=== PATIENT | male | born 1945 | race Caucasian/White ===

== ENCOUNTER 2019-10-26 07:50 | Emergency (ER) | payer MEDICARE, OTHER ==
[2019-10-26 08:21] VITALS: BP 158/67; PULSE 88
--- NOTE | 2019-10-26 08:54 | EDM.PDOC ---
ED HPI GENERAL MEDICAL PROBLEM - General Chief Complaint: Lower Extremity Injury/Pain Stated Complaint: FALL (HIP PAIN) Time Seen by Provider: 10/26/19 08:40 Source of Information: Reports: Patient, Family (son) History Limitations: Reports: No Limitations - History of Present Illness INITIAL COMMENTS - FREE TEXT/NARRATIVE: 74-year-old male presents to the ED for evaluation of left hip buttock pain. Patient was standing on the hitch of a back of 1/2 ton last evening and fell landing hard on his left hip. It required 2 of his sons to help pick him up and he could partially weight-bear on the left hip. Pain is much worse this morning and did plague him all night long. He can still weight-bear with a significant limp and a little help by his son. Of note the patient is on Plavix due to multiple stents in his heart and previous bilateral carotid endarterectomy. And scraped up his left forearm denies any injuries to his head neck chest wall or back. Injury occurred about 1930 hrs. last evening. He believes his tetanus toxoid is up-to-date. Onset: Sudden Onset Date: 10/25/19 Onset Time: 19:30 Duration: Hour(s): (All occurred about 1930 hrs. last night.), Getting Worse Location: Reports: Lower Extremity, Left (Pain in left hip and buttock area. Very painful to sit.) Quality: Reports: Ache Severity: Moderate (7 out of 10) Improves with: Reports: Rest Worsens with: Reports: Other (Worse with attempts to weight-bear and to sit.) Associated Symptoms: Denies: Confusion, Chest Pain, Cough, cough w sputum, Di aphoresis, Fever/Chills, Headaches, Loss of Appetite, Malaise, Nausea/Vomiting, Seizure, Shortness of Breath, Syncope, Weakness Treatments HAND TUBE BENDER: Reports: Other (see below) (Only his regular medications.) Left Hip Pain Score (Numeric/FACES): 8 - Related Data Allergies Allergy/AdvReac Type Severity Reaction Status Date / Time beeswax Allergy Severe Airway Verified 10/26/19 08:21 Tightness beet Allergy Severe Cannot Verified 10/26/19 08:21 Remember Home Meds: Home Meds Advair. 03/03/16 [History] Allopurinol [Zyloprim] 100 mg PO DAILY 03/03/16 [History] Aspirin [Halfprin] 81 mg PO BRK 03/03/16 [History] Flaxseed Oil. 1,200 mg PO BID 03/03/16 [History] Insulin Aspart [NovoLOG] 8 unit SUBCUT TIDAC 03/03/16 [History] Insulin Glarg,Human.Rec.Analog [LantUS Solostar] 22 unit SUBCUT BEDTIME 03/03/16 [History] Metoprolol Tartrate [Lopressor] 25 mg PO BID 03/03/16 [History] Omeprazole 20 mg PO DAILY 03/03/16 [History] Vitamin D3. 03/03/16 [History] amLODIPine [Norvasc] 5 mg PO DAILY 03/03/16 [History] atorvaSTATin [Lipitor] 10 mg PO BEDTIME 03/03/16 [History] levETIRAcetam [Keppra] 1,250 mg PO BID 03/03/16 [History] metFORMIN [Glucophage] 850 mg PO TIDMEALS 03/03/16 [History] Clopidogrel Bisulfate [Plavix] 75 mg PO DAILY 10/26/19 [History] oxyCODONE HCl/Acetaminophen [Percocet 5-325 mg Tablet] 1 - 2 each PO Q4H PRN #15 tablet 10/26/19 [Rx] Past Medical History HEENT History: Reports: Cataract Cardiovascular History: Reports: CAD, Heart Failure, High Cholesterol, Hypertension Genitourinary History: Reports: BPH Neurological History: Reports: CVA, Headaches, Chronic, Head Trauma, Seizure, Other (See Below) (Has had bilateral carotid endarterectomies.) Endocrine/Metabolic History: Reports: Diabetes, Type II - Past Surgical History Cardiovascular Surgical History: Reports: Coronary Artery Bypass GI Surgical History: Reports: Appendectomy Musculoskeletal Surgical History: Reports: Shoulder Surgery Social & Family History - Tobacco Use Smoking Status *Q: Never Smoker - Caffeine Use Caffeine Use: Reports: None, Coffee - Recreational Drug Use Recreational Drug Use: No - Living Situation & Occupation Living situation: Reports: Occupation: Retired Review of Systems - Review of Systems Review Of Systems: See Below Constitutional: Reports: No Symptoms Eyes: Reports: Glasses Ears: Reports: No Symptoms Nose: Reports: No Symptoms Mouth/Throat: Reports: No Symptoms Respiratory: Reports: Shortness of Breath (Occasional shortness of breath.). Denies: Wheezing, Pleuritic Chest Pain, Cough Cardiovascular: Reports: Edema. Denies: Chest Pain, Irregular Heart Rate (Usually in both lower extremities worse on the right side where he had venous harvesting for his bypass surgery.), Lightheadedness, Palpitations, Syncope GI/Abdominal: Reports: Constipation (Occasional problems with constipation.) Genitourinary: Reports: Other (Ravi frequency with nocturia x2 or 3.) Musculoskeletal: Reports: Neck Pain ( Shoulders.), Shoulder Pain (He is in hips.), Back Pain, Joint Pain Skin: Reports: Bruising (Bruises easily as he is on Plavix and aspirin.) Neurological: Reports: Other (Occasional problems with his balance post CVA. Is not requiring). Denies: Confusion, Dizziness Psychiatric: Reports: No Symptoms ( gait aid.) ED EXAM, GENERAL - Physical Exam Exam: See Below Exam Limited By: No Limitations General Appearance: Alert, WD/WN, Mild Distress, Other (Temperature is 36.2 with a heart rate of 88 and sinus respiratory to 16 BP 158/67 pulse ox 96% on room air.) Eye Exam: Bilateral Eye: Normal Inspection, PERRL Respiratory/Chest: No Respiratory Distress, Lungs Clear, Normal Breath Sounds, No Accessory Muscle Use, Decreased Breath Sounds (Breath sounds are mildly diminished in the lower 25% lung rubio bilaterally.), Other (No pain on firm compression of all of his ribs bilaterally no sternal pain.) Cardiovascular: Regular Rate, Rhythm, No Gallop, No Murmur, No Rub. No: Normal Peripheral Pulses, No Edema Peripheral Pulses: 1+: Posterior Tibial (L) (Occult feel pulses in the right lower extremity due to edema of the ankle and foot.), Posterior Tibial (R), Dorsalis Pedis (L), Dorsalis Pedis (R) GI/Abdominal: Normal Bowel Sounds, Soft, Non-Tender, No Organomegaly, No Mass, Pelvis Stable, Other (No signs of trauma to the abdominal wall.) Back Exam: Normal Inspection, Decreased Range of Motion, Other (Trace to the back with no contusions or abrasions appreciated.). No: Full Range of Motion, CVA Tenderness (L) (Chronic low back discomfort.), Paraspinal Tenderness Extremities: Pedal Edema (Plus pitting edema on the right 1+ on the left.), Other (He has some abrasions to the forearm extensor surface on the right side from a fall. He has full unopposed range of motion of the extremity partic ularly full pronation supination at the elbow. In the lower extremities able to lift the right leg off the gurney without any issues. He does have significant restricted internal and external rotation of the right hip indicating significant arthritis. He does have 2+ pitting edema up to the mid tib-fib on the right leg. On the left side he is able to lift the leg off the gurney on his own volition with a good deal of pain. No pain on internal and external rotation of the hip or rolling it on at the bedside. Some tenderness over the greater tuberosity posteriorly without hematoma formation. Some pain on firm palpation over the ischial tuberosity on the right side.) Skin Exam: Warm, Dry, Intact, Normal Color, Other (Durations to the right forearm which are very superficial.) Course - Vital Signs Last Recorded V/S: Last Vital Signs Temp 36.2 C 10/26/19 08:18 Pulse 88 10/26/19 08:18 Resp 16 10/26/19 08:18 BP 158/67 H 10/26/19 08:18 Pulse Ox 96 10/26/19 08:18 - Orders/Labs/Meds Orders: Active Orders 24 hr Category Date Time Status Femur Min 2V Lt [CR] Stat Exams 10/26/19 08:43 Taken Pelvis 1V or 2V [CR] Stat Exams 10/26/19 08:43 Taken - Radiology Interpretation Free Text/Narrative:: 74-year-old male presents to the ED for evaluation of injury to his left hip buttock area after falling off a trailer hitch on the back of his halftime last evening. He landed hard on his left buttock and hip area. He took 2 of his sons to get him up to partially weight-bear and he had pain in his hip area overnight. This morning he did walk into the ED with the aid of his son. He is limping of course. Patient is on Plavix because of multiple stents in his heart and previous bypass. Plan pelvis films and left femur x-rays to be done. - Re-Assessments/Exams Free Text/Narrative Re-Assessment/Exam: 10/26/19 09:22 x-rays of the pelvis do not reveal any fractures within the pelvic structures. Visualized portions of both hips are normal on pelvic film. X-ray of the left femur also proves to be completely normal without any bony injuries evident. Patient appears to have contused his hip without fracture. Abated by being on Plavix which will cause significant soft tissue swelling. Treatment is conservative with ice pack to the area 1/2-hour out of every 4 hours today and tomorrow. After that may apply heat to the area. Pain medication to be Percocet tabs 5 325 mg strength 1 tablet every 4 hours as necessary for pain relief. Suggest stool softeners such as Senokot S twice daily while taking the pain pills or MiraLAX powder 17 g or 1 scoop daily to prevent constipation. Expect 7 to 10 days to return to normal. Departure - Departure Time of Disposition: 09:31 Disposition: Home, Self-Care 01 Condition: Fair Clinical Impression: Contusion of left hip, initial encounter, Contusion of hip - Discharge Information *PRESCRIPTION DRUG MONITORING PROGRAM REVIEWED*: Not Applicable *COPY OF PRESCRIPTION DRUG MONITORING REPORT IN PATIENT TAVO: Not Applicable Prescriptions: oxyCODONE HCl/Acetaminophen [Percocet 5-325 mg Tablet] 1 - 2 each PO Q4H PRN #15 tablet PRN Reason: pain relief. Instructions: Contusion, [id number] Referrals: PCP,Not In Area [Primary Care Provider] - Forms: ED Department Discharge Additional Instructions: Evaluation in the emergency room today in regards to a fall off a trailer hitch last evening onto your left hip. This resulted in a bruised left hip as x-rays of the pelvis and left femur bone do not reveal any broken bones. 2-3 times normal because of being on Plavix into the deep muscles surrounding the hip and buttock. Treatment is ice pack to the area 1/2-hour out of every 4 hours today and tomorrow and after that may apply heat to the area. May use pain medication Percocet tabs 5/325 mg 1 tablet every 4 hours necessary for pain relief. Suggest Senokot-S or MiraLAX powder 17 g once daily while on the pain pills to prevent constipation from occurring. SPECT gradual improvement over the next 7 to 10 days. Pain will likely get worse over the next 48 hours due to swelling into the soft tissues. Follow-up with personal doctor if not completely back to normal in 12 days time. Sepsis Event Note (ED) - Evaluation Sepsis Screening Result: No Definite Risk - Focused Exam Vital Signs: Vital Signs Temp Pulse Resp BP Pulse Ox 10/26/19 08:18 36.2 C 88 16 158/67 H 96 - My Orders Last 24 Hours: My Active Orders 10/26/19 08:43 Femur Min 2V Lt [CR] Stat Pelvis 1V or 2V [CR] Stat - Assessment/Plan Last 24 Hours: My Active Orders 10/26/19 08:43 Femur Min 2V Lt [CR] Stat Pelvis 1V or 2V [CR] Stat
--- NOTE | 2019-10-27 08:43 | CR ---
Left femur: AP and lateral views left femur were obtained. Comparison: No previous femur study. Vascular calcification is noted. Minimal joint space narrowing noted within the left hip. Mild joint space narrowing noted within the medial left knee. Osteopenia is present. No discrete fracture or other bony abnormality is appreciated. Impression: 1. Mild degenerative change, osteopenia and vascular calcification. 2. Nothing acute is appreciated on 2 view left femur study. Diagnostic code #2 This report was dictated in MDT
--- NOTE | 2019-10-27 09:51 | CR ---
Pelvis: AP view of the pelvis was obtained. Comparison: No previous study. Minimal joint space narrowing is seen superiorly within the left hip. Joint space of the right hip is preserved. Sacroiliac joints appear within normal limits. Slight osteopenia is seen. No acute fracture or other bony abnormality is seen. Vascular calcification is seen. Impression: 1. Mild joint space narrowing within the left hip. 1. Slight osteopenia. Diagnostic code #2 This report was dictated in MDT
== END 2019-10-26 09:58 | disposition home or self-care (01) ==
LOC: JD.ED 07:50
DX: S70.02XA Contusion of left hip, initial encounter (principal); I25.10 Atherosclerotic heart disease of native coronary artery without angina pectoris; I11.0 Hypertensive heart disease with heart failure; I50.9 Heart failure, unspecified; R56.9 Unspecified convulsions; E78.00 Pure hypercholesterolemia, unspecified; Z79.02 Long term (current) use of antithrombotics/antiplatelets; Z79.82 Long term (current) use of aspirin; Z91.030 Bee allergy status; Z86.73 Personal history of transient ischemic attack (TIA), and cerebral infarction without residual deficits; E11.9 Type 2 diabetes mellitus without complications; Z79.4 Long term (current) use of insulin; Z79.899 Other long term (current) drug therapy; W19.XXXA Unspecified fall, initial encounter
CPT/HCPCS: 72170; 72170-26; 73552-26-LT; 73552-LT; 99282; 99283